=== PATIENT | female | born 1975 | race Caucasian/White ===

== ENCOUNTER 2017-08-02 19:07 | Emergency (ER) | payer MEDICAID, OTHER ==
[~2017-08-02] VITALS: Ht 157.5 cm; Wt 82.5 kg
[~2017-08-02 19:07] MED LIST: CLIN150 PO; CLON1 PO; GNP50LIQ PO; METH10TA PO; PERC5TAB12 PO; ZOLP1TAB32 PO
[2017-08-02 19:27] VITALS: BP 163/95; PULSE 103; RESP 16; TEMP 99.3; O2SAT 97
[2017-08-02] MEDS ORDERED: GABA100C4 PO (20:20)
[2017-08-02] MEDS ORDERED: CLON.5 PO (20:20)
[2017-08-02] MEDS ORDERED: PHENTERMINE PO (20:20)
[2017-08-02] MEDS ORDERED: GEMF600T PO (20:20)
[2017-08-02] MEDS ORDERED: CLIN300C5 PO (21:03)
[2017-08-02] MEDS ORDERED: MUPI2OIN TOPICAL (21:03)
--- NOTE | 2017-08-02 21:03 | PD ---
HPI Chief Complaint: Skin Problem Time Seen by Provider: 20:07 Travel History International Travel<30 days: No Contact w/Intl Traveler<30days: No Traveled to known affect area: No History of Present Illness HPI This is a 42-year-old female here with concern of MRSA skin infection. She reports multiple superficial wounds to her extremities which are not healing. She denies fever chills. Prior MRSA in the past. Symptom severity is mild. No aggravating or alleviating factors. PFSH Past Medical History Medical History: Denies Significant Hx Anxiety: Yes Diminished Hearing: No ?: Not : 2 Para: 2 Past Surgical History Section: Yes Hysterectomy: Yes Social History Alcohol Use: No Tobacco Use: No Substance Use: No Allergies-Medications (Allergen,Severity, Reaction): Coded Allergies: Sulfa (Sulfonamide Antibiotics) (Unverified Allergy, Mild, RASH, 08/02/17) ofloxacin (Unverified Allergy, Mild, HIVES, 08/02/17) diatrizoate meglumine (Unverified Allergy, Unknown, 08/02/17) gadobenic acid (Unverified Allergy, Unknown, 08/02/17) gadodiamide (Unverified Allergy, Unknown, 08/02/17) gadoteridol (Unverified Allergy, Unknown, 08/02/17) iodixanol (Unverified Allergy, Unknown, 08/02/17) iohexol (Unverified Allergy, Unknown, 08/02/17) Reported Meds & Prescriptions Reported Meds & Active Scripts Active Review of Systems Except as stated in HPI: all other systems reviewed are Neg General / Constitutional: No: Fever Eyes: No: Visual changes HENT: No: Headaches Cardiovascular: No: Chest Pain or Discomfort Respiratory: No: Shortness of Breath Gastrointestinal: No: Abdominal Pain Physical Exam Narrative GENERAL: Alert and well-appearing 42-year-old female SKIN: Multiple superficial wounds with dry scabs and small amount of erythema at wound edges to the face and upper extremities. HEAD: Normocephalic. EYES: No injection or drainage. NECK: Supple, trachea midline. CARDIOVASCULAR: Regular rate and rhythm RESPIRATORY: Breath sounds equal bilaterally. No accessory muscle use. GASTROINTESTINAL: Abdomen soft, non-tender, nondistended. MUSCULOSKELETAL: No cyanosis, or edema. BACK: No CVA tenderness. Data Data Last Documented VS Vital Signs Date Time Temp Pulse Resp B/P (MAP) Pulse Ox O2 Delivery O2 Flow Rate FiO2 08/02/17 19:27 99.3 103 16 163/95 (117) 97 MDM Medical Decision Making Medical Screen Exam Complete: Yes Emergency Medical Condition: Yes Differential Diagnosis Abscess, cellulitis, superficial skin infection Narrative Course 42-year-old female here with superficial skin infection. She is nontoxic appearing. She will be treated with clindamycin and Bactroban ointment. Diagnosis Primary Impression: Superficial skin infection Referrals: Primary Care Physician Additional Instructions: Medication as directed. Follow-up with your primary doctor. Scripts Mupirocin Topical (Mupirocin Topical) 2 % Oint 1 APPLIC TOPICAL BID for Mgmt Bacterial Infection, #22 GM 0 Refills Prov: Myriam Beach 08/02/17 Clindamycin (Clindamycin) 300 Mg Cap 300 MG PO TID for Infection, #21 CAP 0 Refills Prov: Myriam Beach 08/02/17 Disposition: 01 DISCHARGE HOME Condition: Stable Myriam Beach Aug 02, 2017 21:03
[2017-08-03] MEDS ORDERED: PHEN37.52 PO (10:24)
== END 2017-08-02 21:13 | disposition home or self-care (01) ==
LOC: PHEFT 19:07
DX: L08.9 Local infection of the skin and subcutaneous tissue, unspecified (principal); F41.9 Anxiety disorder, unspecified; Z88.2 Allergy status to sulfonamides
CPT/HCPCS: 99283